=== PATIENT | female | born 1995 ===

== ENCOUNTER 2018-10-14 13:24 | Emergency (ER) | payer MEDICAID ==
[2018-10-14 13:33] VITALS: TEMP 98.1
[2018-10-14] MEDS ORDERED: Sodium Chloride 0.9% 1,000 ML IV ONE (13:56)
--- NOTE | 2018-10-14 14:17 | C.PDOC ---
History Of Present Illness Patient reports that she was feeling dizzy earlier today after getting out of the shower. She is unsure if she passed out, but mother states that she thinks the patient did. No seizure activity noted. Patient states that her dizziness has improved, and denies any other symptoms- no fever, nausea, vomiting, headache, vision changes, chest pain, dyspnea, abdominal pain, diarrhea. Family notes that patient drank some water this morning, but has not been eating much. Time Seen by Provider: 10/14/18 13:40 Chief Complaint (Nursing): Dizziness/Lightheaded History Per: Patient, Family Past Medical History Reviewed: Historical Data, Nursing Documentation, Vital Signs Vital Signs: Last Vital Signs Temp 98.1 F 10/14/18 13:29 Pulse 61 10/14/18 13:29 Resp 18 10/14/18 13:29 BP 101/70 10/14/18 13:29 Pulse Ox 100 10/14/18 13:29 MARLENY Report Viewed: Yes - Medical History Other PMH: Developmental delay Family History: States: Unknown Family Hx - Social History Hx Alcohol Use: No Hx Substance Use: No Review Of Systems Except As Marked, All Systems Reviewed And Found Negative. Constitutional: Negative for: Fever, Chills Eyes: Negative for: Vision Change Cardiovascular: Negative for: Chest Pain, Palpitations Respiratory: Negative for: Cough, Shortness of Breath Gastrointestinal: Negative for: Nausea, Vomiting, Abdominal Pain, Diarrhea Genitourinary: Negative for: Dysuria Neurological: Positive for: Dizziness. Negative for: Weakness, Numbness, Change in Speech, Seizures, Headache Physical Exam - Physical Exam Appears: Well, Non-toxic, No Acute Distress Skin: Normal Color, Warm, Dry, No Diaphoretic Head: Atraumatic, Normacephalic Eye(s): bilateral: Normal Inspection, PERRL, EOMI, Other (No nystagmus) Oral Mucosa: Moist Cardiovascular: Rhythm Regular Respiratory: Normal Breath Sounds Gastrointestinal/Abdominal: Normal Exam Extremity: Normal ROM Extremity: Bilateral: Atraumatic, Normal Color And Temperature Neurological/Psych: Oriented x3, Normal Speech, No Cerebellar Signs (finger to nose intact bilaterally), Normal Motor (5/5 strength all extremities), Normal Sensation ED Course And Treatment - Laboratory Results Result Diagrams: 10/14/18 14:34 10/14/18 14:34 ECG: Interpreted By Me ECG Rhythm: Sinus Rhythm ECG Interpretation: Normal Interpretation Of ECG: normal axis, normal intervals, no ST elevation, no T wave changes Rate From EC O2 Sat by Pulse Oximetry: 100 Pulse Ox Interpretation: Normal Medical Decision Making Medical Decision MakinL NS bolus given. Dizziness resolved. Patient able to ambulate without difficulty. EKG and labs were unremarkable, results discussed with patient and family. No further syncopal episodes. Stable for discharge home. Advised outpatient followup. Return to the ED for any new or worsening symptoms. Disposition - Disposition Disposition: HOME/ ROUTINE Disposition Time: 16:56 Condition: STABLE Additional Instructions: ZACH HALEY, thank you for letting us take care of you today. Your provider was Carmela Matthew MD and you were treated for DIZZINESS. The emergency medical care you received today was directed at your acute symptoms. If you were prescribed any medication, please fill it and take as directed. It may take several days for your symptoms to resolve. Return to the Emergency Department if your symptoms worsen, do not improve, or if you have any other problems. Please contact your doctor or call one of the physicians/clinics you have been referred to that are listed on the Patient Visit Information form that is included in your discharge packet. Bring any paperwork you were given at discharge with you along with any medications you are taking to your follow up visit. Our treatment cannot replace ongoing medical care by a primary care provider outside of the emergency department. Thank you for allowing the [facility] team to be part of your care today. If you had an X-Ray or CT scan: A Radiologist will review the ED reading if any change in treatment is needed we will contact you. If you had a blood, urine, or wound culture: It will take several days for the results, if any change in treatment is needed we will contact you. If you had an STI test: It will take 48 hours for the results. Please call after 1 week if you have not heard back. Prescriptions: Nitrofurantoin Macrocrystals [Macrobid] 100 mg PO BID #14 cap Instructions: Urinary Tract Infection, Adult (DC), Syncope (Fainting) (DC) Forms: [employer] (Italian) Print Language: GUATEMALAN - Clinical Impression Clinical Impression: Syncope, Dizziness
[2018-10-14 14:40] LABS: BASO % 0.7 % (0.0-2.0); EOS % 0.3 % (0.0-4.0); LYMPH # 1.2 K/uL (1.0-4.3); LYMPH % 18.8 % (20.0-40.0); MEAN CELL VOLUME 82.7 fL (81.0-99.0); MEAN CORPUSCULAR HEMOGLOBIN 26.8 pg (27.0-31.0); MEAN CORPUSCULAR HGB CONC 32.4 g/dL (33.0-37.0); MEAN PLATELET VOLUME 8.1 fL (7.2-11.7); MONO # 0.5 K/uL (0.0-0.8); MONO % 8.7 % (0.0-10.0); NEUT # 4.5 K/uL (1.8-7.0); NEUT % 71.5 % (50.0-75.0); RBC 4.48 Mil/uL (3.80-5.20); RED CELL DISTRIBUTION WIDTH 13.9 % (11.5-14.5); WHITE BLOOD COUNT 6.3 K/uL (4.8-10.8)
[2018-10-14 14:51] LABS: ALB/GLOB RATIO 1.5 (1.0-2.1); ALBUMIN 4.4 g/dL (3.5-5.0); AST/SGOT 29 U/L (14-36); BLOOD UREA NITROGEN 10 mg/dL (7-17); CALCIUM 9.3 mg/dl (8.6-10.4); GFR NON-AFRICAN AMERICAN > 60
[2018-10-14 15:08] LABS: ALT/SGPT 36 U/L (9-52)
[2018-10-14 15:58] LABS: SQUAMOUS EPITHIAL 11 /hpf (0-5); URINE AMORPHOUS SEDIMENT OCC /ul (<OCC); URINE BACTERIA RARE (<OCC); URINE BILIRUBIN NEGATIVE (NEGATIVE); URINE BLOOD 2+ (NEGATIVE); URINE CLARITY Hazy (Clear); URINE COLOR Yellow (YELLOW); URINE GLUCOSE (UA) NORMAL (Normal); URINE LEUKOCYTE ESTERASE 2+ Leu/uL (Negative); URINE PROTEIN NEGATIVE (NEGATIVE); URINE UROBILINOGEN NORMAL mg/dL (0.2-1.0)
[2018-10-14 16:31] VITALS: BP 107/71; PULSE 66; RESP 15
[2018-10-14 23:06] VITALS: O2SAT 100
--- NOTE | 2018-10-18 19:48 | CARD ---
APPROVED REPORT Date of service: 10/14/2018 EKG Measurement Heart [id number] [place] 134P2 [id number] <Conclusion> Normal sinus rhythm Normal ECG
== END 2018-10-14 17:00 | disposition home or self-care (01) ==
LOC: C.ER 13:24
DX: R55 Syncope and collapse (principal); R42 Dizziness and giddiness
CPT/HCPCS: 80053; 81001; 82948; 83735; 84100; 85025; 93005; 96360; 99285; J7030